=== PATIENT | male | born 1945 | race Caucasian/White ===

== ENCOUNTER 2021-04-16 19:25 | Inpatient (IN) | payer OTHER ==
[2021-04-16] MEDS ORDERED: chlordiazePOXIDE HCL 25 MG CAPSULE PO ONE (21:02)
[2021-04-16] MEDS ORDERED: ALBUTEROL SO4 HFA INHALER IH ONE ×2 (21:04→21:08)
[2021-04-16] MEDS ORDERED: LORazepam 2 MG TABLET PO ONE (21:10)
[2021-04-16] MEDS ORDERED: LORazepam 1 MG TABLET ONE (21:12)
[2021-04-16 22:36] LABS: EOS % 2.2 % (0-4.5); HEMATOCRIT 36.9 % (35.4-49); HEMOGLOBIN 11.7 GM/dL (11.7-16.9); LYMPH % 26.4 % (8-40); MCH 27.2 pg (25.7-33.7); MCHC 31.8 g/dl (32.0-35.9); MEAN CELL VOLUME 85.7 fl (80-96); MEAN PLT VOLUME 7.8 fl (7.5-11.1); MONO % 10.1 % (3.8-10.2); NEUT % 60.3 % (42.8-82.8); PLATELET COUNT 229 10^3/uL (134-434); RDW 18.7 % (11.9-15.9); WHITE BLOOD COUNT 6.5 K/mm3 (4.0-10.0)
[2021-04-16 22:45] LABS: INR 1.16 (0.83-1.09); PROTHROMBIN TIME (PATIENT) 14.2 SEC (9.7-13.0)
[2021-04-16 22:46] LABS: CHLORIDE 96 mmol/L (98-107); SODIUM 136 mmol/L (136-145)
[2021-04-16 22:47] LABS: ALBUMIN 3.5 g/dl (3.4-5.0); ANION GAP 10 MMOL/L (8-16); BLOOD UREA NITROGEN 8.7 mg/dL (7-18); CALCIUM 8.9 mg/dL (8.5-10.1); CO2 30 mmol/L (21-32)
[2021-04-16 22:48] LABS: GLUCOSE,RANDOM 118 mg/dL (74-106)
[2021-04-16 22:50] LABS: SGOT/AST 17 U/L (15-37); SGPT/ALT 20 U/L (13-61)
[2021-04-16 22:51] LABS: CREATININE 0.9 mg/dL (0.55-1.3)
[2021-04-16 22:53] LABS: ALK PHOS 137 U/L (45-117); BILIRUBIN,TOTAL 0.8 mg/dL (0.2-1); TOT PROT 6.5 g/dl (6.4-8.2)
[2021-04-16] MEDS ORDERED: FUROSEMIDE 40 MG/4 ML INJECTABLE VIAL IVPUSH ONE (23:28)
[2021-04-16] MEDS ORDERED: FUROSEMIDE 40 MG/4 ML INJECTABLE VIAL ONE (23:44)
[2021-04-17] MEDS ORDERED: THIAMINE HCL 200 MG/2 ML VIAL IVPB SCH ×3 (00:15→12:15)
[2021-04-17] MEDS ORDERED: chlordiazePOXIDE HCL 25 MG CAPSULE PO ONE (00:20)
[2021-04-17] MEDS ORDERED: LORazepam 2 MG/ML SDV VIAL IVPUSH ONE ×2 (00:20→00:22)
[2021-04-17] MEDS ORDERED: ALBUTEROL SO4 2.5/IPRATROPIUM 0.5 INH SOL 3 ML VIAL.NEB. NEB ONE ×2 (00:27→02:37)
[2021-04-17] MEDS ORDERED: LORazepam 2 MG/ML SDV VIAL ONE (00:27)
[2021-04-17] MEDS ORDERED: methylPREDNISolone NA SUCC 125 MG/2 ML VIAL ONE (00:28)
[2021-04-17] MEDS ORDERED: methylPREDNISolone NA SUCC 125 MG/2 ML VIAL IVPB ONE (00:28)
[2021-04-17] MEDS ORDERED: LEVALBUTEROL HCL 0.63 MG/3 ML VIAL.NEB. IH PRN (00:28)
[2021-04-17] MEDS ORDERED: THIAMINE HCL 200 MG/2 ML VIAL ONE (00:32)
[2021-04-17] MEDS ORDERED: METOPROLOL TARTRATE 5 MG/5 ML VIAL ONE (02:41)
[2021-04-17] MEDS: METOPROLOL TARTRATE 5 MG/5 ML VIAL IVPUSH ONE ×2 (02:44→02:47)
[2021-04-17] MEDS ORDERED: dilTIAZem HCL 50 MG/10 ML - 10 ML VIAL IVPUSH PRN ×3 (02:56→10:51)
[2021-04-17] MEDS ORDERED: LORazepam 2 MG/ML SDV VIAL IVPUSH PRN (03:15)
[2021-04-17] MEDS ORDERED: dilTIAZem HCL 50 MG/10 ML - 10 ML VIAL IVPUSH ONE (03:16)
[2021-04-17] MEDS ORDERED: dilTIAZem HCL 125 MG/25 ML - 25 ML VIAL ONE (03:23)
[2021-04-17 03:31] LABS: ARTERIAL BLD GAS O2 SATURATION 96.9 % (95-98); ARTERIAL BLOOD GAS BASE EXCESS 5.1 mmol/L (-2-2); ARTERIAL BLOOD GAS PO2 93.2 mmHg (80-100); ARTERIAL BLOOD GAS pH 7.383 (7.350-7.450)
[2021-04-17 04:23] LABS: PH,URINE 7.5 (5.0-8.0); URINE APPEARANCE CLEAR; URINE BILIRUBIN NEGATIVE (NEGATIVE); URINE COLOR YELLOW; URINE GLUCOSE (UA) NEGATIVE (NEGATIVE); URINE KETONE NEGATIVE (NEGATIVE); URINE LEUK ESTERASE NEGATIVE (NEGATIVE); URINE NITRITE NEGATIVE (NEGATIVE); URINE PROTEIN NEGATIVE (NEGATIVE); URINE UROBILINOGEN 0.2 mg/dL (0.2-1.0)
[2021-04-17 07:03] LABS: HEMATOCRIT 37.9 % (35.4-49); HEMOGLOBIN 12.1 GM/dL (11.7-16.9); MCH 27.4 pg (25.7-33.7); MCHC 31.9 g/dl (32.0-35.9); MEAN CELL VOLUME 85.9 fl (80-96); MEAN PLT VOLUME 8.2 fl (7.5-11.1); PLATELET COUNT 209 10^3/uL (134-434); RBC 4.41 M/mm3 (4.00-5.60); RDW 19.2 % (11.9-15.9); WHITE BLOOD COUNT 4.8 K/mm3 (4.0-10.0)
[2021-04-17 07:23] LABS: ALBUMIN 3.6 g/dl (3.4-5.0); MAGNESIUM 1.8 mg/dL (1.8-2.4)
[2021-04-17 07:25] LABS: BLOOD UREA NITROGEN 11.7 mg/dL (7-18); CALCIUM 8.8 mg/dL (8.5-10.1)
[2021-04-17 07:27] LABS: PHOSPHOROUS 5.1 mg/dL (2.5-4.9)
[2021-04-17 07:30] LABS: BILIRUBIN,TOTAL 1.1 mg/dL (0.2-1)
[2021-04-17 07:31] LABS: TOT PROT 6.6 g/dl (6.4-8.2)
[2021-04-17] MEDS ORDERED: LEVALBUTEROL HCL 0.63 MG/3 ML VIAL.NEB. IH SCH (08:00)
[2021-04-17] MEDS: INSULIN SLIDING SCALE (NOVOLOG) 1 VIAL SQ SCH ×5 (08:36→21:42)
[2021-04-17] MEDS ORDERED: IPRATROPIUM BR 0.02% 0.5 MG/2.5 ML VIAL.NEB. NEB PRN (09:36)
[2021-04-17] MEDS ORDERED: BUDESONIDE/FORMETEROL FUMARATE 80/4.5 mcg INHALER IH SCH (10:00)
[2021-04-17] MEDS ORDERED: ENOXAPARIN NA (PORCINE) 40 MG/0.4 ML DISP.SYRIN SQ SCH ×2 (10:00)
[2021-04-17] MEDS ORDERED: methylPREDNISolone NA SUCC 40 MG/1 ML VIAL IVPUSH SCH (10:00)
[2021-04-17] MEDS ORDERED: FLUTICASONE/SALMETEROL 100 MCG/50 MCG DISKUS IH SCH (10:00)
[2021-04-17] MEDS ORDERED: MUPIROCIN 2% TOPICAL OINTMENT FOR DECOLONIZATION NS SCH ×2 (10:00)
[2021-04-17] MEDS ORDERED: METOPROLOL TARTRATE 50 MG TABLET (FP) PO SCH (10:00)
[2021-04-17] MEDS ORDERED: FOLIC ACID 1 MG TABLET (FP) PO SCH ×2 (10:00)
[2021-04-17] MEDS: LEVALBUTEROL HCL 0.63 MG/3 ML VIAL.NEB. IH SCH ×3 (11:24→20:38)
[2021-04-17] MEDS: IPRATROPIUM BR 0.02% 0.5 MG/2.5 ML VIAL.NEB. NEB SCH ×3 (11:24→20:10)
[2021-04-17] MEDS ORDERED: IPRATROPIUM BR 0.02% 0.5 MG/2.5 ML VIAL.NEB. NEB SCH ×2 (12:00)
[2021-04-17] MEDS: methylPREDNISolone NA SUCC 40 MG/1 ML VIAL IVPUSH SCH (18:17)
[2021-04-17] MEDS: BUDESONIDE/FORMETEROL FUMARATE 160/4.5 mcg INHALER IH SCH (21:41)
[2021-04-17] MEDS: ATORVASTATIN CA 80 MG TABLET (FP) PO SCH (21:42)
[2021-04-17] MEDS: APIXABAN 5 MG TABLET PO SCH (21:42)
[2021-04-17] MEDS: MONTELUKAST NA 10 MG TABLET PO SCH (21:42)
[2021-04-17] MEDS: MUPIROCIN 2% TOPICAL OINTMENT FOR DECOLONIZATION NS SCH (21:43)
[2021-04-17] MEDS ORDERED: dilTIAZem HCL 60 MG TABLET PO SCH (22:00)
[2021-04-17] MEDS ORDERED: CHLORHEXIDINE GLUCONATE 4% CLEANSER FOR DECOLONIZATION TP SCH ×2 (22:00)
[2021-04-18] MEDS: methylPREDNISolone NA SUCC 40 MG/1 ML VIAL IVPUSH SCH ×3 (01:28→17:53)
[2021-04-18] MEDS: INSULIN SLIDING SCALE (NOVOLOG) 1 VIAL SQ SCH ×4 (06:08→21:28)
[2021-04-18 06:54] LABS: BASO % 0.1 % (0-2.0); HEMATOCRIT 35.6 % (35.4-49); LYMPH % 5.4 % (8-40); MCH 26.9 pg (25.7-33.7); MEAN CELL VOLUME 86.9 fl (80-96); MEAN PLT VOLUME 7.9 fl (7.5-11.1); MONO % 2.9 % (3.8-10.2); NEUT % 91.6 % (42.8-82.8); PLATELET COUNT 198 10^3/uL (134-434); RDW 19.3 % (11.9-15.9); WHITE BLOOD COUNT 5.9 K/mm3 (4.0-10.0)
[2021-04-18 07:11] LABS: CHLORIDE 98 mmol/L (98-107); SODIUM 138 mmol/L (136-145)
[2021-04-18 07:14] LABS: CALCIUM 8.8 mg/dL (8.5-10.1)
[2021-04-18 07:15] LABS: ALBUMIN 3.5 g/dl (3.4-5.0); ANION GAP 8 MMOL/L (8-16); CO2 32 mmol/L (21-32); GLUCOSE,RANDOM 262 mg/dL (74-106); MAGNESIUM 2.2 mg/dL (1.8-2.4)
[2021-04-18 07:18] LABS: CREATININE 1.4 mg/dL (0.55-1.3); PHOSPHOROUS 4.5 mg/dL (2.5-4.9); SGOT/AST 11 U/L (15-37); SGPT/ALT 20 U/L (13-61)
[2021-04-18 07:19] LABS: BILIRUBIN,TOTAL 0.8 mg/dL (0.2-1); TOT PROT 6.3 g/dl (6.4-8.2)
[2021-04-18 07:21] LABS: ALK PHOS 122 U/L (45-117)
[2021-04-18] MEDS: LEVALBUTEROL HCL 0.63 MG/3 ML VIAL.NEB. IH SCH ×4 (08:00→21:00)
[2021-04-18] MEDS: IPRATROPIUM BR 0.02% 0.5 MG/2.5 ML VIAL.NEB. NEB SCH ×4 (08:00→20:59)
[2021-04-18 09:38] LABS: ANISOCYTOSIS 1+; MACROCYTOSIS 1+
[2021-04-18] MEDS ORDERED: INSULIN (LEVEMIR) 100 UNITS/ML UNITS SQ ONE (09:43)
[2021-04-18] MEDS: THIAMINE HCL 100 MG TABLET (FP) PO SCH (09:44)
[2021-04-18] MEDS: PANTOPRAZOLE 40 MG TABLET PO SCH (09:44)
[2021-04-18] MEDS: MUPIROCIN 2% TOPICAL OINTMENT FOR DECOLONIZATION NS SCH ×2 (09:45→22:47)
[2021-04-18] MEDS: APIXABAN 5 MG TABLET PO SCH ×2 (09:45→22:46)
[2021-04-18] MEDS: BUDESONIDE/FORMETEROL FUMARATE 160/4.5 mcg INHALER IH SCH ×2 (09:45→22:47)
[2021-04-18] MEDS: FOLIC ACID 1 MG TABLET (FP) PO SCH (09:45)
[2021-04-18] MEDS ORDERED: FUROSEMIDE 40 MG/4 ML INJECTABLE VIAL IVPUSH SCH ×2 (10:00)
[2021-04-18] MEDS ORDERED: ENOXAPARIN NA (PORCINE) 40 MG/0.4 ML DISP.SYRIN SQ SCH (10:00)
[2021-04-18] MEDS ORDERED: PT OWN MED DRAWER 7, Y5N ONE ×2 (14:52→15:23)
[2021-04-18] MEDS: guaiFENesin/D-M SUGAR-FREE/ACLHOL-FREE 118 ML BOTTLE PO PRN (15:27)
[2021-04-18] MEDS ORDERED: ACETAMINOPHEN 325 MG TABLET (FP) PO ONE ×2 (19:35→19:55)
[2021-04-18] MEDS ORDERED: LORazepam 2 MG/ML SDV VIAL IVPUSH PRN (20:16)
[2021-04-18] MEDS: ATORVASTATIN CA 80 MG TABLET (FP) PO SCH (22:47)
[2021-04-18] MEDS: MONTELUKAST NA 10 MG TABLET PO SCH (22:47)
[2021-04-19] MEDS: methylPREDNISolone NA SUCC 40 MG/1 ML VIAL IVPUSH SCH ×3 (03:10→17:20)
[2021-04-19] MEDS: INSULIN SLIDING SCALE (NOVOLOG) 1 VIAL SQ SCH ×4 (06:44→22:44)
[2021-04-19 06:54] LABS: BLOOD UREA NITROGEN 34.3 mg/dL (7-18); CALCIUM 8.8 mg/dL (8.5-10.1); MAGNESIUM 2.4 mg/dL (1.8-2.4)
[2021-04-19 06:57] LABS: CREATININE 1.4 mg/dL (0.55-1.3); PHOSPHOROUS 4.1 mg/dL (2.5-4.9)
[2021-04-19] MEDS ORDERED: INSULIN (LEVEMIR) 100 UNITS/ML UNITS SQ SCH ×2 (07:00→07:14)
[2021-04-19] MEDS ORDERED: INSULIN (LEVEMIR) 100 UNITS/ML UNITS SQ ONE (07:15)
[2021-04-19] MEDS: IPRATROPIUM BR 0.02% 0.5 MG/2.5 ML VIAL.NEB. NEB SCH ×4 (07:30→20:00)
[2021-04-19] MEDS: LEVALBUTEROL HCL 0.63 MG/3 ML VIAL.NEB. IH SCH ×4 (07:50→20:00)
[2021-04-19] MEDS: PANTOPRAZOLE 40 MG TABLET PO SCH (09:27)
[2021-04-19] MEDS: MUPIROCIN 2% TOPICAL OINTMENT FOR DECOLONIZATION NS SCH ×2 (09:27→22:37)
[2021-04-19] MEDS: FOLIC ACID 1 MG TABLET (FP) PO SCH (09:27)
[2021-04-19] MEDS: THIAMINE HCL 100 MG TABLET (FP) PO SCH (09:27)
[2021-04-19] MEDS: APIXABAN 5 MG TABLET PO SCH ×2 (09:27→22:36)
[2021-04-19] MEDS: BUDESONIDE/FORMETEROL FUMARATE 160/4.5 mcg INHALER IH SCH ×2 (09:28→22:35)
[2021-04-19] MEDS: ACETAMINOPHEN 325 MG TABLET (FP) PO PRN (17:44)
[2021-04-19] MEDS: ATORVASTATIN CA 80 MG TABLET (FP) PO SCH (22:36)
[2021-04-19] MEDS: MONTELUKAST NA 10 MG TABLET PO SCH (22:36)
[2021-04-20] MEDS: methylPREDNISolone NA SUCC 40 MG/1 ML VIAL IVPUSH SCH ×5 (03:41→13:35)
[2021-04-20] MEDS ORDERED: BISACODYL 10 MG SUPP.RECT PR ONE (04:41)
[2021-04-20] MEDS ORDERED: ACETAMINOPHEN 325 MG TABLET (FP) PO ONE (05:00)
[2021-04-20] MEDS: INSULIN SLIDING SCALE (NOVOLOG) 1 VIAL SQ SCH ×5 (06:44→22:35)
[2021-04-20] MEDS: INSULIN (LEVEMIR) 100 UNITS/ML UNITS SQ SCH (06:45)
[2021-04-20] MEDS: IPRATROPIUM BR 0.02% 0.5 MG/2.5 ML VIAL.NEB. NEB SCH ×4 (09:18→20:36)
[2021-04-20] MEDS: LEVALBUTEROL HCL 0.63 MG/3 ML VIAL.NEB. IH SCH ×4 (09:18→20:36)
[2021-04-20] MEDS: BUDESONIDE/FORMETEROL FUMARATE 160/4.5 mcg INHALER IH SCH ×2 (09:22→22:36)
[2021-04-20] MEDS: MULTIVITAMINS (DAILY MVI) TABLET (FP) PO SCH (09:22)
[2021-04-20] MEDS: APIXABAN 5 MG TABLET PO SCH ×2 (09:22→22:34)
[2021-04-20] MEDS: PANTOPRAZOLE 40 MG TABLET PO SCH (09:22)
[2021-04-20] MEDS: THIAMINE HCL 100 MG TABLET (FP) PO SCH (09:22)
[2021-04-20] MEDS: FOLIC ACID 1 MG TABLET (FP) PO SCH (09:22)
[2021-04-20] MEDS: MUPIROCIN 2% TOPICAL OINTMENT FOR DECOLONIZATION NS SCH ×2 (09:23→22:34)
[2021-04-20 14:12] LABS: BASO % 0.2 % (0-2.0); HEMATOCRIT 36.5 % (35.4-49); HEMOGLOBIN 11.4 GM/dL (11.7-16.9); MCH 27.4 pg (25.7-33.7); MCHC 31.2 g/dl (32.0-35.9); MEAN CELL VOLUME 87.9 fl (80-96); MEAN PLT VOLUME 8.4 fl (7.5-11.1); MONO % 8.2 % (3.8-10.2); NEUT % 88.6 % (42.8-82.8); PLATELET COUNT 198 10^3/uL (134-434); RBC 4.16 M/mm3 (4.00-5.60); RDW 19.1 % (11.9-15.9)
[2021-04-20 14:26] LABS: ALBUMIN 3.5 g/dl (3.4-5.0); BLOOD UREA NITROGEN 41.5 mg/dL (7-18)
[2021-04-20 14:29] LABS: CREATININE 1.4 mg/dL (0.55-1.3)
[2021-04-20 14:30] LABS: BILIRUBIN,TOTAL 0.8 mg/dL (0.2-1); TOT PROT 6.4 g/dl (6.4-8.2)
[2021-04-20] MEDS ORDERED: PT OWN MED DRAWER 7, Y5N ONE (20:33)
[2021-04-20] MEDS: guaiFENesin/D-M SUGAR-FREE/ACLHOL-FREE 118 ML BOTTLE PO PRN (20:46)
[2021-04-20] MEDS: ATORVASTATIN CA 80 MG TABLET (FP) PO SCH (22:34)
[2021-04-20] MEDS: MONTELUKAST NA 10 MG TABLET PO SCH (22:34)
[2021-04-21] MEDS: methylPREDNISolone NA SUCC 40 MG/1 ML VIAL IVPUSH SCH (00:57)
[2021-04-21] MEDS ORDERED: PT OWN MED DRAWER 7, Y5N ONE ×2 (03:03→15:51)
[2021-04-21] MEDS: guaiFENesin/D-M SUGAR-FREE/ACLHOL-FREE 118 ML BOTTLE PO PRN ×4 (03:05→21:39)
[2021-04-21] MEDS: INSULIN SLIDING SCALE (NOVOLOG) 1 VIAL SQ SCH ×4 (06:12→21:47)
[2021-04-21] MEDS: INSULIN (LEVEMIR) 100 UNITS/ML UNITS SQ SCH (06:12)
[2021-04-21 07:37] LABS: HEMOGLOBIN 11.1 GM/dL (11.7-16.9); LYMPH % 6.5 % (8-40); MCH 27.5 pg (25.7-33.7); MCHC 31.6 g/dl (32.0-35.9); MEAN CELL VOLUME 87.2 fl (80-96); MEAN PLT VOLUME 8.1 fl (7.5-11.1); MONO % 11.2 % (3.8-10.2); NEUT % 82.3 % (42.8-82.8); PLATELET COUNT 160 10^3/uL (134-434); RBC 4.02 M/mm3 (4.00-5.60); RDW 18.7 % (11.9-15.9); WHITE BLOOD COUNT 6.3 K/mm3 (4.0-10.0)
[2021-04-21] MEDS: IPRATROPIUM BR 0.02% 0.5 MG/2.5 ML VIAL.NEB. NEB SCH ×4 (07:40→20:48)
[2021-04-21] MEDS: LEVALBUTEROL HCL 0.63 MG/3 ML VIAL.NEB. IH SCH ×4 (07:40→20:48)
[2021-04-21 07:53] LABS: ALBUMIN 3.4 g/dl (3.4-5.0); BLOOD UREA NITROGEN 41.4 mg/dL (7-18); CALCIUM 8.8 mg/dL (8.5-10.1)
[2021-04-21 07:54] LABS: MAGNESIUM 2.3 mg/dL (1.8-2.4)
[2021-04-21 07:56] LABS: CREATININE 1.3 mg/dL (0.55-1.3)
[2021-04-21 07:57] LABS: PHOSPHOROUS 3.3 mg/dL (2.5-4.9)
[2021-04-21 07:58] LABS: BILIRUBIN,TOTAL 0.8 mg/dL (0.2-1); TOT PROT 6.1 g/dl (6.4-8.2)
[2021-04-21] MEDS: THIAMINE HCL 100 MG TABLET (FP) PO SCH (09:45)
[2021-04-21] MEDS: MULTIVITAMINS (DAILY MVI) TABLET (FP) PO SCH (09:45)
[2021-04-21] MEDS: PANTOPRAZOLE 40 MG TABLET PO SCH (09:45)
[2021-04-21] MEDS: BUDESONIDE/FORMETEROL FUMARATE 160/4.5 mcg INHALER IH SCH ×2 (09:46→21:40)
[2021-04-21] MEDS: APIXABAN 5 MG TABLET PO SCH ×2 (09:46→21:39)
[2021-04-21] MEDS: FOLIC ACID 1 MG TABLET (FP) PO SCH (09:46)
[2021-04-21] MEDS: MUPIROCIN 2% TOPICAL OINTMENT FOR DECOLONIZATION NS SCH ×2 (09:50→21:39)
[2021-04-21] MEDS ORDERED: methylPREDNISolone NA SUCC 40 MG/1 ML VIAL IVPUSH SCH (10:00)
[2021-04-21] MEDS: predniSONE 20 MG TABLET (UD) PO SCH (12:23)
[2021-04-21] MEDS: ATORVASTATIN CA 80 MG TABLET (FP) PO SCH (21:39)
[2021-04-21] MEDS: MONTELUKAST NA 10 MG TABLET PO SCH (21:39)
[2021-04-22] MEDS ORDERED: PT OWN MED DRAWER 7, Y5N ONE ×2 (05:56→09:31)
[2021-04-22] MEDS: INSULIN SLIDING SCALE (NOVOLOG) 1 VIAL SQ SCH ×5 (06:01→21:27)
[2021-04-22] MEDS: guaiFENesin/D-M SUGAR-FREE/ACLHOL-FREE 118 ML BOTTLE PO PRN ×4 (06:01→21:22)
[2021-04-22] MEDS: INSULIN (LEVEMIR) 100 UNITS/ML UNITS SQ SCH (06:01)
[2021-04-22 06:43] LABS: BASO % 0.1 % (0-2.0); HEMATOCRIT 36.1 % (35.4-49); HEMOGLOBIN 11.3 GM/dL (11.7-16.9); LYMPH % 11.5 % (8-40); MCH 27.3 pg (25.7-33.7); MCHC 31.2 g/dl (32.0-35.9); MEAN CELL VOLUME 87.5 fl (80-96); MONO % 10.7 % (3.8-10.2); NEUT % 77.7 % (42.8-82.8); PLATELET COUNT 151 10^3/uL (134-434); RBC 4.12 M/mm3 (4.00-5.60); RDW 19.3 % (11.9-15.9)
[2021-04-22 07:04] LABS: ALBUMIN 3.4 g/dl (3.4-5.0); CALCIUM 9.1 mg/dL (8.5-10.1)
[2021-04-22 07:05] LABS: MAGNESIUM 2.1 mg/dL (1.8-2.4)
[2021-04-22 07:07] LABS: CREATININE 1.3 mg/dL (0.55-1.3)
[2021-04-22 07:08] LABS: PHOSPHOROUS 3.1 mg/dL (2.5-4.9)
[2021-04-22 07:09] LABS: TOT PROT 6.3 g/dl (6.4-8.2)
[2021-04-22] MEDS: LEVALBUTEROL HCL 0.63 MG/3 ML VIAL.NEB. IH SCH (08:29)
[2021-04-22] MEDS: IPRATROPIUM BR 0.02% 0.5 MG/2.5 ML VIAL.NEB. NEB SCH ×2 (08:30→08:31)
[2021-04-22] MEDS: MULTIVITAMINS (DAILY MVI) TABLET (FP) PO SCH (09:32)
[2021-04-22] MEDS: FOLIC ACID 1 MG TABLET (FP) PO SCH (09:32)
[2021-04-22] MEDS: predniSONE 20 MG TABLET (UD) PO SCH (09:32)
[2021-04-22] MEDS: THIAMINE HCL 100 MG TABLET (FP) PO SCH (09:32)
[2021-04-22] MEDS: APIXABAN 5 MG TABLET PO SCH ×2 (09:32→21:22)
[2021-04-22] MEDS: PANTOPRAZOLE 40 MG TABLET PO SCH (09:32)
[2021-04-22] MEDS: MUPIROCIN 2% TOPICAL OINTMENT FOR DECOLONIZATION NS SCH (09:33)
[2021-04-22] MEDS: BUDESONIDE/FORMETEROL FUMARATE 160/4.5 mcg INHALER IH SCH ×2 (09:34→21:40)
[2021-04-22] MEDS: LEVALBUTEROL HCL 0.63 MG/3 ML VIAL.NEB. IH PRN (16:58)
[2021-04-22] MEDS: ACETAMINOPHEN 325 MG TABLET (FP) PO PRN (18:46)
[2021-04-22] MEDS: MONTELUKAST NA 10 MG TABLET PO SCH (21:22)
[2021-04-22] MEDS: ATORVASTATIN CA 80 MG TABLET (FP) PO SCH (21:22)
[2021-04-22] MEDS: MELATONIN 5 MG TABLETS PO PRN (23:59)
[2021-04-23] MEDS ORDERED: PT OWN MED DRAWER 7, Y5N ONE (06:21)
[2021-04-23] MEDS: guaiFENesin/D-M SUGAR-FREE/ACLHOL-FREE 118 ML BOTTLE PO PRN ×2 (06:25→10:19)
[2021-04-23] MEDS: INSULIN SLIDING SCALE (NOVOLOG) 1 VIAL SQ SCH ×4 (06:25→22:25)
[2021-04-23] MEDS: INSULIN (LEVEMIR) 100 UNITS/ML UNITS SQ SCH (06:25)
[2021-04-23 06:38] LABS: BASO % 0.2 % (0-2.0); EOS % 0.1 % (0-4.5); HEMATOCRIT 35.9 % (35.4-49); HEMOGLOBIN 11.2 GM/dL (11.7-16.9); LYMPH % 11.5 % (8-40); MCH 27.3 pg (25.7-33.7); MCHC 31.2 g/dl (32.0-35.9); MEAN CELL VOLUME 87.6 fl (80-96); MEAN PLT VOLUME 8.2 fl (7.5-11.1); MONO % 12.2 % (3.8-10.2); PLATELET COUNT 142 10^3/uL (134-434); RDW 18.6 % (11.9-15.9); WHITE BLOOD COUNT 6.4 K/mm3 (4.0-10.0)
[2021-04-23 07:14] LABS: ALBUMIN 3.3 g/dl (3.4-5.0); BLOOD UREA NITROGEN 33.7 mg/dL (7-18); CALCIUM 9.1 mg/dL (8.5-10.1)
[2021-04-23 07:17] LABS: CREATININE 1.2 mg/dL (0.55-1.3); MAGNESIUM 2.3 mg/dL (1.8-2.4); PHOSPHOROUS 4.1 mg/dL (2.5-4.9)
[2021-04-23 07:18] LABS: BILIRUBIN,TOTAL 0.9 mg/dL (0.2-1)
[2021-04-23] MEDS: MULTIVITAMINS (DAILY MVI) TABLET (FP) PO SCH (10:00)
[2021-04-23] MEDS: APIXABAN 5 MG TABLET PO SCH ×2 (10:00→21:16)
[2021-04-23] MEDS: FOLIC ACID 1 MG TABLET (FP) PO SCH (10:00)
[2021-04-23] MEDS: ACETAMINOPHEN 325 MG TABLET (FP) PO PRN (10:00)
[2021-04-23] MEDS: PANTOPRAZOLE 40 MG TABLET PO SCH (10:00)
[2021-04-23] MEDS: predniSONE 20 MG TABLET (UD) PO SCH (10:00)
[2021-04-23] MEDS: THIAMINE HCL 100 MG TABLET (FP) PO SCH (10:00)
[2021-04-23] MEDS: BUDESONIDE/FORMETEROL FUMARATE 160/4.5 mcg INHALER IH SCH ×2 (10:15→21:17)
[2021-04-23] MEDS ORDERED: INSULIN (LEVEMIR) 100 UNITS/ML UNITS SQ SCH (10:44)
[2021-04-23] MEDS: LEVALBUTEROL HCL 0.63 MG/3 ML VIAL.NEB. IH PRN ×2 (10:45→21:04)
[2021-04-23] MEDS ORDERED: FUROSEMIDE 40 MG/4 ML INJECTABLE VIAL IVPUSH ONE (10:45)
[2021-04-23 11:52] LABS: BLOOD UREA NITROGEN 31.6 mg/dL (7-18)
[2021-04-23 11:57] LABS: CREATININE 1.1 mg/dL (0.55-1.3)
[2021-04-23 13:36] VITALS: BMI 36.0
[2021-04-23] MEDS: ALBUTEROL SO4 0.083% IH SOL 2.5 MG/3 ML VIAL.NEB. NEB PRN (15:32)
[2021-04-23] MEDS: MONTELUKAST NA 10 MG TABLET PO SCH (21:15)
[2021-04-23] MEDS: MELATONIN 5 MG TABLETS PO PRN (21:16)
[2021-04-23] MEDS: ATORVASTATIN CA 80 MG TABLET (FP) PO SCH (21:16)
[2021-04-24] MEDS: INSULIN SLIDING SCALE (NOVOLOG) 1 VIAL SQ SCH ×4 (06:05→23:45)
[2021-04-24 06:19] LABS: HEMOGLOBIN 11.1 GM/dL (11.7-16.9); MCH 26.9 pg (25.7-33.7); MCHC 30.7 g/dl (32.0-35.9); MEAN CELL VOLUME 87.7 fl (80-96); MEAN PLT VOLUME 8.4 fl (7.5-11.1); PLATELET COUNT 148 10^3/uL (134-434); RBC 4.11 M/mm3 (4.00-5.60); RDW 18.6 % (11.9-15.9); WHITE BLOOD COUNT 6.9 K/mm3 (4.0-10.0)
[2021-04-24 06:40] LABS: MAGNESIUM 2.1 mg/dL (1.8-2.4)
[2021-04-24] MEDS: ACETAMINOPHEN 325 MG TABLET (FP) PO PRN ×2 (07:48→15:49)
[2021-04-24] MEDS ORDERED: PT OWN MED DRAWER 7, Y5N ONE ×2 (08:01→11:25)
[2021-04-24] MEDS: guaiFENesin/D-M SUGAR-FREE/ACLHOL-FREE 118 ML BOTTLE PO PRN ×2 (08:03→15:49)
[2021-04-24] MEDS: LEVALBUTEROL HCL 0.63 MG/3 ML VIAL.NEB. IH PRN (08:32)
[2021-04-24] MEDS: predniSONE 20 MG TABLET (UD) PO SCH (09:40)
[2021-04-24] MEDS: FUROSEMIDE 40 MG TABLET (FP) PO SCH (09:40)
[2021-04-24] MEDS: APIXABAN 5 MG TABLET PO SCH ×2 (09:40→21:31)
[2021-04-24] MEDS: THIAMINE HCL 100 MG TABLET (FP) PO SCH (09:40)
[2021-04-24] MEDS: MULTIVITAMINS (DAILY MVI) TABLET (FP) PO SCH (09:40)
[2021-04-24] MEDS: PANTOPRAZOLE 40 MG TABLET PO SCH (09:40)
[2021-04-24] MEDS: FOLIC ACID 1 MG TABLET (FP) PO SCH (09:40)
[2021-04-24] MEDS ORDERED: LOSARTAN POTASSIUM 25 MG TABLET PO SCH (10:00)
[2021-04-24] MEDS: BUDESONIDE/FORMETEROL FUMARATE 160/4.5 mcg INHALER IH SCH ×2 (10:01→21:31)
[2021-04-24 11:35] LABS: CALCIUM 9.2 mg/dL (8.5-10.1)
[2021-04-24 11:36] LABS: BLOOD UREA NITROGEN 33.3 mg/dL (7-18)
[2021-04-24 11:39] LABS: CREATININE 1.1 mg/dL (0.55-1.3)
[2021-04-24] MEDS: ALBUTEROL SO4 0.083% IH SOL 2.5 MG/3 ML VIAL.NEB. NEB PRN (11:57)
[2021-04-24] MEDS ORDERED: LEVALBUTEROL HCL 0.63 MG/3 ML VIAL.NEB. IH SCH (14:00)
[2021-04-24] MEDS: LEVALBUTEROL HCL 0.63 MG/3 ML VIAL.NEB. IH SCH (20:16)
[2021-04-24] MEDS: MONTELUKAST NA 10 MG TABLET PO SCH (21:31)
[2021-04-24] MEDS: ATORVASTATIN CA 80 MG TABLET (FP) PO SCH (21:31)
[2021-04-24] MEDS: MELATONIN 5 MG TABLETS PO PRN (21:32)
[2021-04-25] MEDS: INSULIN (LEVEMIR) 100 UNITS/ML UNITS SQ SCH (07:47)
[2021-04-25] MEDS: INSULIN SLIDING SCALE (NOVOLOG) 1 VIAL SQ SCH ×4 (07:48→22:00)
[2021-04-25] MEDS: ACETAMINOPHEN 325 MG TABLET (FP) PO PRN (08:04)
[2021-04-25] MEDS: LEVALBUTEROL HCL 0.63 MG/3 ML VIAL.NEB. IH SCH ×3 (08:42→20:08)
[2021-04-25] MEDS ORDERED: PT OWN MED DRAWER 7, Y5N ONE (09:11)
[2021-04-25] MEDS: FUROSEMIDE 40 MG TABLET (FP) PO SCH (09:14)
[2021-04-25] MEDS: predniSONE 20 MG TABLET (UD) PO SCH (09:14)
[2021-04-25] MEDS: FOLIC ACID 1 MG TABLET (FP) PO SCH (09:14)
[2021-04-25] MEDS: APIXABAN 5 MG TABLET PO SCH ×2 (09:14→22:00)
[2021-04-25] MEDS: PANTOPRAZOLE 40 MG TABLET PO SCH (09:15)
[2021-04-25] MEDS: MULTIVITAMINS (DAILY MVI) TABLET (FP) PO SCH (09:15)
[2021-04-25] MEDS: THIAMINE HCL 100 MG TABLET (FP) PO SCH (09:15)
[2021-04-25] MEDS: guaiFENesin/D-M SUGAR-FREE/ACLHOL-FREE 118 ML BOTTLE PO PRN (09:16)
[2021-04-25] MEDS: BUDESONIDE/FORMETEROL FUMARATE 160/4.5 mcg INHALER IH SCH ×2 (09:16→22:00)
[2021-04-25] MEDS: MONTELUKAST NA 10 MG TABLET PO SCH (22:00)
[2021-04-25] MEDS: ATORVASTATIN CA 80 MG TABLET (FP) PO SCH (22:00)
[2021-04-26] MEDS: INSULIN (LEVEMIR) 100 UNITS/ML UNITS SQ SCH (07:01)
[2021-04-26] MEDS: INSULIN SLIDING SCALE (NOVOLOG) 1 VIAL SQ SCH ×4 (07:01→23:53)
[2021-04-26] MEDS: LEVALBUTEROL HCL 0.63 MG/3 ML VIAL.NEB. IH SCH ×3 (07:30→20:10)
[2021-04-26] MEDS: ACETAMINOPHEN 325 MG TABLET (FP) PO PRN ×2 (08:16→22:15)
[2021-04-26] MEDS: guaiFENesin/D-M SUGAR-FREE/ACLHOL-FREE 118 ML BOTTLE PO PRN (08:17)
[2021-04-26] MEDS: predniSONE 20 MG TABLET (UD) PO SCH (09:44)
[2021-04-26] MEDS: MULTIVITAMINS (DAILY MVI) TABLET (FP) PO SCH (09:44)
[2021-04-26] MEDS: PANTOPRAZOLE 40 MG TABLET PO SCH (09:44)
[2021-04-26] MEDS: APIXABAN 5 MG TABLET PO SCH ×2 (09:45→22:13)
[2021-04-26] MEDS: FOLIC ACID 1 MG TABLET (FP) PO SCH (09:45)
[2021-04-26] MEDS: THIAMINE HCL 100 MG TABLET (FP) PO SCH (09:45)
[2021-04-26] MEDS: LISINOPRIL 5 MG TABLET PO SCH (09:45)
[2021-04-26] MEDS: FUROSEMIDE 40 MG TABLET (FP) PO SCH (09:47)
[2021-04-26] MEDS: BUDESONIDE/FORMETEROL FUMARATE 160/4.5 mcg INHALER IH SCH ×2 (09:48→22:14)
[2021-04-26] MEDS ORDERED: PT OWN MED DRAWER 7, Y5N ONE (10:58)
[2021-04-26] MEDS: ATORVASTATIN CA 80 MG TABLET (FP) PO SCH (22:13)
[2021-04-26] MEDS: MELATONIN 5 MG TABLETS PO PRN (22:14)
[2021-04-26] MEDS: MONTELUKAST NA 10 MG TABLET PO SCH (22:14)
[2021-04-27] MEDS: LEVALBUTEROL HCL 0.63 MG/3 ML VIAL.NEB. IH SCH (07:25)
[2021-04-27] MEDS ORDERED: PT OWN MED DRAWER 7, Y5N ONE (09:17)
[2021-04-27] MEDS: LISINOPRIL 5 MG TABLET PO SCH (09:21)
[2021-04-27] MEDS: MULTIVITAMINS (DAILY MVI) TABLET (FP) PO SCH (09:21)
[2021-04-27] MEDS: FOLIC ACID 1 MG TABLET (FP) PO SCH (09:21)
[2021-04-27] MEDS: THIAMINE HCL 100 MG TABLET (FP) PO SCH (09:21)
[2021-04-27] MEDS: PANTOPRAZOLE 40 MG TABLET PO SCH (09:21)
[2021-04-27] MEDS: APIXABAN 5 MG TABLET PO SCH (09:21)
[2021-04-27] MEDS: predniSONE 20 MG TABLET (UD) PO SCH (09:21)
[2021-04-27] MEDS: FUROSEMIDE 40 MG TABLET (FP) PO SCH (09:21)
[2021-04-27] MEDS: INSULIN SLIDING SCALE (NOVOLOG) 1 VIAL SQ SCH ×2 (09:30→11:00)
[2021-04-27] MEDS: BUDESONIDE/FORMETEROL FUMARATE 160/4.5 mcg INHALER IH SCH (09:33)
[2021-04-27] MEDS: INSULIN (LEVEMIR) 100 UNITS/ML UNITS SQ SCH (09:37)
[2021-04-27 11:46] VITALS: TEMP 98.7
[2021-04-27 11:47] VITALS: BP 164/91; PULSE 67
== END 2021-04-27 11:15 | DRG 896 ==
LOC: JER 19:25 → JERBED 04-17 00:46 → JICU 04-17 04:37
PROVIDERS: ADMIT Internal Medicine
PROC: HZ2ZZZZ Detoxification Services for Substance Abuse Treatment (ICD-10-PCS; principal; 2021-04-16)
DX: F10.239 Alcohol dependence with withdrawal, unspecified (principal); I50.33 Acute on chronic diastolic (congestive) heart failure; J96.21 Acute and chronic respiratory failure with hypoxia; J44.1 Chronic obstructive pulmonary disease with (acute) exacerbation; N17.9 Acute kidney failure, unspecified; F10.229 Alcohol dependence with intoxication, unspecified; E11.65 Type 2 diabetes mellitus with hyperglycemia; J44.9 Chronic obstructive pulmonary disease, unspecified; I48.91 Unspecified atrial fibrillation; E78.5 Hyperlipidemia, unspecified; N40.0 Benign prostatic hyperplasia without lower urinary tract symptoms; Z68.33 Body mass index [BMI] 33.0-33.9, adult; F32.9 Major depressive disorder, single episode, unspecified; E87.5 Hyperkalemia; N18.9 Chronic kidney disease, unspecified; I25.119 Atherosclerotic heart disease of native coronary artery with unspecified angina pectoris; E66.01 Morbid (severe) obesity due to excess calories
CPT/HCPCS: 36415; 36600; 70450-TC; 71045-TC-FY; 76775-TC; 80048; 80053; 80061; 80307; 81003; 82550; 82803; 82962; 83036; 83735; 83880; 84100; 84443; 84484; 85025; 85027; 85610; 85730; 93005; 93010; 93306-TC; 93970-TC; 94640; 94660; 94761; 97116-GP; 97161-GP; 99285-25; C9803; U0003; U0005